=== PATIENT | female | born 1985 | race Caucasian/White ===

== ENCOUNTER 2017-06-01 04:58 | Day surgery (SDC) | payer MEDICAID ==
--- NOTE | 2017-05-31 21:12 | HISTORY AND PHYSICAL ---
DATE OF ADMISSION: June 01, 2017 CHIEF COMPLAINT Abnormal bleeding. HISTORY OF PRESENT ILLNESS The patient is a 31-year-old 4, para 3, with a recent sudden episode of heavy bleeding where she flooded through her pants last week. It was reported as continuing throughout this week. The heaviness lasted for approximately six hours and was sudden in onset, and there was no aggravating factors. Saline- infusion sonogram revealed she had a polypoid mass within the uterine cavity. After a discussion of risks and alternatives, the patient decided to proceed with hysteroscopic polypectomy and fractional D and C. CURRENT MEDICATIONS * Valtrex daily. ALLERGIES CEFACLOR, she gets a rash. REVIEW OF SYSTEMS GENITOURINARY: Per HPI. GENERAL, SKIN, EYES, EARS, NOSE, MOUTH, NECK, RESPIRATORY, CARDIOVASCULAR, GASTROINTESTINAL, NEUROLOGIC, PSYCHIATRIC: All reviewed and noncontributory. PAST MEDICAL HISTORY * HSV-2. * She has had three vaginal deliveries, one spontaneous . FAMILY HISTORY Noncontributory. SOCIAL HISTORY Does not drink alcohol. She is a nonsmoker. No illicit drug use. She is a dance teacher. PHYSICAL EXAMINATION VITAL SIGNS: BP 120/80, temp 98.4, weight 149. CONSTITUTIONAL: Well-nourished, well-developed female in no distress. SKIN: Without rash or lesions. NECK: Supple, without masses. HEART: Regular rate and rhythm. LUNGS: Clear to auscultation bilaterally. ABDOMEN: Soft, nontender, nondistended. Bowel sounds positive. EXTREMITIES: Nontender. No edema. PSYCHIATRIC: Alert and oriented times three. Normal mood and affect. PELVIC: Normal external female genitalia. She had bloody vaginal discharge. Cervix normal in appearance. Uterus 7 x 6 cm, tender. No adnexal masses or tenderness. ASSESSMENT * Uterine polyp. * Menorrhagia. PLAN Plan to perform hysteroscopic polypectomy and fractional D and C. [facility]
[~2017-06-01] VITALS: Ht 162.6 cm; Wt 67.1 kg
[2017-06-01] VITALS (7 sets, daily range): BP systolic 97–107; BP diastolic 61–66
[~2017-06-01 04:58] MED LIST: ACE3 PO; DIA5 PO; GUAI480S48 PO; IBU200 PO; IBU600 PO; IBU800 PO; IBUP800T37 PO; LOR5 PO; MULT-1335 PO; NORG1TAB2 PO; PREN1TAB50; VALA500T66 PO; VITAMINS
[2017-06-01 05:41] LABS: PLATELET COUNT, AUTOMATED 167 K/uL (150-450)
[2017-06-01] MEDS: NORMOSOL R SOLN(*) 1000 ML BAG 1,000 ML IV PRN ×2 (05:41→07:00)
[2017-06-01] MEDS ORDERED: HYDROmorphone HCL 2 MG TAB PO ONE (06:30)
[2017-06-01] MEDS ORDERED: MIDAZOLAM 2 MG/2 ML VIAL IVP PRN (06:30)
[2017-06-01] MEDS ORDERED: FAMOTIDINE 20 MG TAB PO ONE (06:30)
[2017-06-01] MEDS ORDERED: CELECOXIB 200 MG CAP PO ONE (06:30)
[2017-06-01] MEDS ORDERED: LIDOCAINE/SOD BICARB 8.4% SYR ID ONE (06:30)
[2017-06-01] MEDS ORDERED: OXYTOCIN 10 UNIT/ML SDV ONE (06:40)
[2017-06-01] MEDS ORDERED: METHYLERGONOVINE MAL 0.2MG/ML ONE (06:41)
[2017-06-01] MEDS ORDERED: fentaNYL CITR 100 MCG/2 ML AMP ONE (07:09)
[2017-06-01] MEDS ORDERED: DEXAMETHASONE SOD PHOS 10MG/ML ONE (07:10)
[2017-06-01] MEDS ORDERED: LIDOCAINE MPF 1% 5 ML VIAL ONE (07:10)
[2017-06-01] MEDS ORDERED: PROPOFOL EMUL(*) 10MG/ML 20 ML 40 ML ONE (07:10)
[2017-06-01] MEDS ORDERED: ONDANSETRON 4 MG/2 ML VIAL ONE ×2 (07:10→09:01)
--- NOTE | 2017-06-01 07:37 | Post Operative Note ---
Operative Note - ANALYTICS SENIOR MANAGER Operative Day Date: Jun 01, 2017 Time: 08:00 Physicians Surgeon: HOWARD Anesthesia: CHAPARRITA Diagnosis Pre-Op Diagnosis: MENORRHAGIA UTERINE POLYP Post-Op Diagnosis: SAME Procedure Findings: UT. 7X6 NO ADNEXAL MASSES POLYPOID MASS AT FUNDUS OF UTERUS 022022 Procedure(s): HSCOPE POLYPECTOMY FRACTIONAL D AND C Complications: 0 Fluids Fluids: 1400 CC NR IV HSCOPE IN 2350 CC NS DEFICIT 795 CC Estimated Blood Loss: MINIMAL Dictated Date OP Note Dictated: Jun 01, 2017 Time OP Note Dictated: 08:00 Copies to: LAKIA LAWRENCE MD, JOHN MD Jun 01, 2017 07:37
[2017-06-01] MEDS ORDERED: IBUP800T37 PO (07:38)
[2017-06-01] MEDS ORDERED: HYDR2TAB4 PO (07:38)
[2017-06-01] MEDS ORDERED: PROPOFOL EMUL(*) 10MG/ML 20 ML 20 ML ONE (07:49)
[2017-06-01] MEDS ORDERED: LR(*) 1000 ML BAG 1,000 ML IV ONE (08:01)
--- NOTE | 2017-06-01 08:04 | OB/GYN Discharge Summary ---
Discharge Summary Reason for Hosp/Final Diag: (1) Status post hysteroscopic polypectomy Hospital Course & Plan: HSCOPE POLYPECTOMY PERFORMED NO COMPLICATIONS TOLERATED WELL Lates Vital Signs Vital Signs Date Time Temp Pulse Resp B/P (MAP) Pulse Ox O2 Delivery O2 Flow Rate FiO2 06/01/17 05:40 97.3 71 16 107/66 (80) 94 Room Air Weight (Pounds): 148 Result Diagram: 06/01/17 0535 Condition: Improved Discharge: Home, Self [facility] Meds Active Scripts Ibuprofen (IBUPROFEN) 800 Mg Tablet, 1 TAB PO Q8H, #30 TAB 0 Refills Take with food every 8 hours. Prov:LAKIA TREVIÑO MD 06/01/17 Hydromorphone Hcl (HYDROMORPHONE HCL) 2 Mg Tablet, 2-4 MG PO Q4H for PAIN, #20 TAB 0 Refills Prov:LAKIA TREVIÑO MD 06/01/17 Reported Medications Multivitamin With Minerals (MULTIPLE VITAMIN) 1 Each Tablet, 1 EACH PO DAILY, TAB 05/31/17 Discontinued Reported Medications Vit #76/Iron,Carb/FA (Pnv 29-1 Tablet) 1 Each Tablet 04/23/15 Discontinued Scripts Ibuprofen (IBUPROFEN) 800 Mg Tablet, 1 TAB PO Q8H Y for pain, #40 TAB 0 Refills TAKE WITH FOOD EVERY 8 HOURS Prov:DEEJAY JI MD 04/25/15 Acetaminophen/Codeine (TYLENOL #3 (OR EQUIV)) 1 Ea Tab, 1-2 EACH PO Q4H Y for PAIN, #30 TAB 0 Refills Prov:DEEJAY JI MD 04/25/15 Follow up with: Dr. Treviño [phone] Follow up in: 2 wks PO Discharge Diet: As Tolerates Discharge Activity: Pelvic Rest Copies to: LAKIA TREVIÑO MD, JOHN MD Jun 01, 2017 08:04
[2017-06-01] MEDS ORDERED: METOCLOPRAMIDE 10 MG/2 ML SDV IVP PRN (08:05)
[2017-06-01] MEDS ORDERED: HYDROmorphone HCL 2 MG TAB PO PRN (08:05)
[2017-06-01] MEDS ORDERED: PROMETHAZINE 25 MG/ML 1 ML AMP ONE (08:18)
[2017-06-01] MEDS ORDERED: IBUPROFEN 800 MG TAB PO SCH (18:00)
--- NOTE | 2017-06-01 23:37 | OPERATIVE REPORT 1 ---
EVENT DATE: June 01, 2017 SURGEON: Ney Treviño MD ANESTHESIOLOGIST: Jimenez Salmeron MD ANESTHESIA: General. PREOPERATIVE DIAGNOSES 1. Menorrhagia. 2. Uterine polyp. POSTOPERATIVE DIAGNOSES 1. Menorrhagia. 2. Uterine polyp. PROCEDURES PERFORMED 1. Hysteroscopic polypectomy. 2. Fractional dilation and curettage. COMPLICATIONS None. FLUIDS Normosol 1400 mL IV. HYSTEROSCOPIC FLUID In 2350 mL of Normosol, deficit of 795 mL. ESTIMATED BLOOD LOSS Minimal. INDICATIONS The patient is a 31-year-old female with heavy bleeding that had soaked through her clothes in the last week and has continued to bleed. Saline infusion sonogram revealed a polypoid mass within the uterine cavity. After discussion of risks and alternatives, patient desired to proceed with hysteroscopic polypectomy and fractional D and C. FINDINGS Uterus 7 x 6 cm. No adnexal masses. She had a polypoid mass at the fundus of the uterus. DESCRIPTION OF PROCEDURE After informed consent was obtained, the patient was taken to the operating room with the IV running and placed in the supine position where general anesthesia was obtained without difficulty. She was then placed in the [facility], examined under anesthesia with the above findings, prepped and draped in the usual sterile fashion. Her bladder was drained. Side-out speculum was placed into the vagina. Cervix grasped with a single-toothed tenaculum. The cervix was curettaged with a Kevorkian curette, sample passed off the table. Uterus was sounded. Then, the cervix was dilated to allow passage of the hysteroscope. Hysteroscope was advanced. Polyp was identified. The MyoSure was then advanced into the uterine cavity. The MyoSure was used to shave the entire polyp off the uterine wall. After this had been performed, the curettage of the uterine lining was performed and passed off the table. All instruments were removed from the vagina. The tenaculum sites were made hemostatic with silver nitrate. The patient was taken out of the [facility], awakened from anesthesia, and taken to the recovery unit in stable condition. [facility]
== END 2017-06-01 09:15 | disposition home or self-care (01) ==
LOC: OR 04:58
PROVIDERS: ATTEND Obstetrics & Gynecology
DX: N92.0 Excessive and frequent menstruation with regular cycle (principal); N84.0 Polyp of corpus uteri
CPT/HCPCS: 36415; 58558; 84703; 85025; 88305; J1100; J2001; J2250; J2405; J2550; J2704; J3010; J2210; J2590